=== PATIENT | male | born 1980 | race Caucasian/White ===

== ENCOUNTER 2024-09-07 14:05 | Emergency (ER) | payer SELFPAY ==
[~2024-09-07] VITALS: Ht 177.8 cm; Wt 80.0 kg
[2024-09-07 14:10] VITALS: BP 123/80; PULSE 90; RESP 16; TEMP 36.9; O2SAT 94
[2024-09-07] MEDS: SODIUM CHLORIDE 0.9% 1,000 ML IV ONE (15:15)
== END 2024-09-07 15:44 | disposition left against medical advice (07) ==
LOC: ER 14:05
DX: R55 Syncope and collapse (principal)
CPT/HCPCS: 93005; 99283; J7030